=== PATIENT | female | born 1970 | race Caucasian/White ===

== ENCOUNTER 2017-05-10 06:32 | Day surgery (SDC) | payer BC ==
--- NOTE | 2017-05-03 19:34 | HP ---
PREOPERATIVE HISTORY AND PHYSICAL: DATE OF SURGERY/ADMISSION: 05/10/17 ATTENDING SURGEON: Patricia Norton MD * (DICTATED BY MECHELLE ZAZUETA) PROCEDURE: Right wrist arthroscopy, ulnar shortening osteotomy. CHIEF COMPLAINT: Right wrist pain. HISTORY OF PRESENT ILLNESS: This is a 46-year-old female who has a history of right wrist tendonitis; however, she sustained an acute injury to the wrist in the beginning of January when she fell on an outstretched right hand. Since then she has had increasing right wrist pain mostly on the ulnar aspect of the wrist. It hurts her when she moves it into ulnar deviation or when she supinates her forearm. She wears a brace, but sometimes it actually makes it feel a bit worse and she has to take the brace off. She denies any associated numbness or tingling. X-rays taken of the wrist show an ulnar positive variance of about 3 mm. The patient's wrist pain has persisted and at this point she has consented to proceed with surgical intervention in the form of a right wrist arthroscopy to take a look at the TFCC and an ulnar shortening osteotomy. PAST MEDICAL HISTORY: 1. Depression. 2. Hypothyroidism. 3. History of heart palpitations. PAST SURGICAL HISTORY: 1. Bariatric surgery in December 2012. 2. x3. 3. Right carpal tunnel release. 4. Cyst removal from back. CURRENT MEDICATIONS: 1. Calcium plus vitamin D daily. 2. Iron 65 mg daily. 3. Levoxyl 25 mcg daily. 4. Multivitamin daily. 5. Prozac 80 mg daily. 6. Vitamin C ER 500 mg daily. 7. Vitamin B12 daily. ALLERGIES: No known drug allergies. 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 She denies tobacco use and recreational drug use. She does drink alcohol on rare occasion. REVIEW OF SYSTEMS: General: Negative for fevers, chills, or night sweats. No known anesthesia problems. HEENT: Negative for headache, lightheadedness, or syncopal episodes. Integumentary: Negative for abrasions, lesions, or open wounds. Cardiothoracic: Negative for hypertension, chest pain, or edema. Pulmonary: Negative for shortness of breath with exertion, chronic cough, or COPD. GI: Negative for nausea, vomiting, diarrhea, constipation, or GERD. : Negative for nocturia, urinary frequency, urgency, history of UTIs, or kidney problems. Musculoskeletal: Positive for current complaint. Negative for chronic or intermittent back pain, or history of fractures. Neurologic: Positive for depression. Negative for paresthesias, numbness, history of seizures, stroke, or epilepsy. Endocrine: Positive for hypothyroidism. Negative for diabetes. Hematologic: Negative for easy bruising, anemia, excessive bleeding, or history of DVT. Infectious Disease: Negative for history of MRSA, hepatitis C, or HIV. PHYSICAL EXAMINATION GENERAL: Well-developed, well-nourished 46-year-old female in no acute distress. VITAL SIGNS: Height is 5 feet 7 inches, weight 234 pounds. Blood pressure 128/ 80, pulse rate 70. HEENT: Normocephalic, atraumatic. Pupils are equal, round, and reactive to light and accommodation. Extraocular movements are intact. NECK: Supple. No palpable lymph nodes. Throat is clear. PULMONARY: Lungs are clear to auscultation bilaterally. No wheezes, rales, or rhonchi. CARDIOVASCULAR: Regular rate and rhythm. S1 and S2. No murmurs, rubs, or gallops. No edema. ABDOMEN: Positive bowel sounds, soft, nontender. NEUROLOGIC: Alert and oriented x3. Cranial nerves II through XII are intact. Sensation is intact to light touch. MUSCULOSKELETAL: On exam of her right wrist, she has no visible swelling, but there is tenderness to palpation at the distal radial ulnar joint and the distal ulna is a bit more prominent. She has tenderness in area of the TFCC. She can make a full fist. She has good range of motion, but pain with supination and ulnar deviation. Skin is intact. Neurovascular function is intact. IMAGING STUDIES: X-rays AP, lateral, and oblique at the right wrist show an ulnar positive variance of about 3 mm, but no other bony abnormalities. IMPRESSION: Right wrist ulnar impaction syndrome, possible TFCC tear. PLAN: The patient is scheduled to undergo a right wrist arthroscopy and ulnar shortening osteotomy with Dr. Norton on 05/10/17. She will return to the office 10 days postop for followup and suture removal. A prescription for [place] was e - scribed to the patient's pharmacy for postoperative pain management. MECHELLE ZAZUETA [id number]/[facility] #: [id number] [facility] MEDICAL CENTERRaghav
[~2017-05-10 06:32] MED LIST: Buffered Lidocaine 0.9% SYRIN* 5 ML/SYR SYRINGE INTRADERM ONE; Dexamethasone IV* 4 MG/ML 1 ML (4 MG) IV SLOW PU ONE; Famotidine IV* 10 MG/ML 2 ML (20 mg) IV ONE; Sodium Citrate/Citric Acid* 15 ML UDC PO ONE
[2017-05-10] MEDS ORDERED: ceFAZolin 2 GM PREMIX (*) 2 GM/50 ML BAG IVPB ONE (06:40)
[2017-05-10] MEDS ORDERED: Famotidine IV* 10 MG/ML 2 ML (20 mg) ONE (06:40)
[2017-05-10] MEDS ORDERED: Dexamethasone IV* 4 MG/ML 1 ML (4 MG) ONE (06:40)
[2017-05-10] MEDS ORDERED: Sodium Citrate/Citric Acid* 15 ML UDC ONE (06:41)
[2017-05-10] MEDS ORDERED: Midazolam* 1 MG/ML 2 ML VIAL (2 MG) ONE (07:04)
[2017-05-10] MEDS ORDERED: fentaNYL* 50 MCG/ML 2 ML VIAL (100 MCG VIAL) ONE (07:04)
[2017-05-10] MEDS ORDERED: Bupivacaine 0.25% SDV* 30 ML ONE (07:33)
[2017-05-10] MEDS ORDERED: Ondansetron INJ* 2 MG/ML VIAL ONE (07:58)
[2017-05-10] MEDS ORDERED: Ketorolac INJ* 30 MG/ML 1 ML VIAL ONE (07:58)
[2017-05-10] MEDS ORDERED: HYDROmorphone INJ* 1 MG/ML CARPUJECT SYRINGE IV PRN (08:04)
[2017-05-10] MEDS ORDERED: Naloxone* 0.4 MG/ML 1 ML VIAL IV PRN (08:04)
[2017-05-10] MEDS ORDERED: Scopolamine 1.5 mg* PATCH TRANSDERM PRN (08:04)
[2017-05-10] MEDS ORDERED: Ibuprofen TAB* 600 MG PO PRN (08:04)
[2017-05-10] MEDS ORDERED: fentaNYL* 50 MCG/ML 2 ML VIAL (100 MCG VIAL) IV PRN (08:04)
[2017-05-10] MEDS ORDERED: oxyCODONE/Acetamin 5/325 MG* TAB PO PRN (08:04)
[2017-05-10] MEDS ORDERED: Ondansetron INJ* 2 MG/ML VIAL IV PRN (08:04)
[2017-05-10] MEDS ORDERED: Bupivacaine 0.5% SDV PF* 10-30ML VIAL ONE (08:09)
[2017-05-10] MEDS ORDERED: EPHEDrine (Pressors)* 50 MG/ML VIAL ONE (08:11)
[2017-05-10] MEDS ORDERED: Glycopyrrolate IV* 0.2 MG/ML 1 ML VIAL ONE (08:12)
[2017-05-10] MEDS ORDERED: HYDROcodone/ACETAMIN 5-325 MG* 1 TAB ONE (09:32)
[2017-05-10 10:23] VITALS: BP 138/80
--- NOTE | 2017-05-10 15:09 | RAD ---
INDICATION: Right wrist pain COMPARISONS: January 17, 2017 TECHNIQUE: Fluoroscopy was provided for a surgical procedure. Total fluoroscopy time is: 45 seconds FINDINGS: Spot images demonstrate internal fixation of the ulna. IMPRESSION: FLUOROSCOPY WAS PROVIDED FOR A SURGICAL PROCEDURE CPT II Codes: 6045F
--- NOTE | 2017-05-10 21:56 | OP ---
CC: Dr. Norton OPERATIVE NOTE: ADDENDUM: The surgical forceps fabricator, MECHELLE Carty, was essential for the completion of the case, serving to retract the soft tissues while the osteotomy cut was made. [id number]/[facility] #: [id number] MTDD
--- NOTE | 2017-05-10 22:21 | OP ---
ADDENDUM NOW INCLUDED ON THIS REPORT DATE OF OPERATION: 05/10/17 - [facility] DATE OF : 68 SURGEON: Patricia Norton MD PLATER SUPERVISOR: MECHELLE Carty ANESTHESIOLOGIST: Gi Hernandez MD ANESTHESIA: General. PRE-OP DIAGNOSES: Triangular fibrocartilage complex tear and ulnar impaction syndrome of the right wrist. POST-OP DIAGNOSIS: Ulnar impaction syndrome of the right wrist. OPERATIVE PROCEDURE: Right wrist arthroscopy, TFCC debridement and ulnar shortening osteotomy. ESTIMATED BLOOD LOSS: Zero. TOURNIQUET TIME: 45 minutes. INDICATIONS FOR PROCEDURE: Adelita is a 46-year-old female with ulnar-sided wrist pain for several months. MRI shows a TFCC tear and on x-ray she has ulnar positive variance of 3 mm. She presents for right wrist arthroscopy and ulnar shortening osteotomy. DESCRIPTION OF PROCEDURE: The patient was brought to the operating room, was given a general anesthetic, placed on supine position on the operating table with a tourniquet around her right upper arm. Skin of her right upper extremity was prepped and draped in the usual sterile fashion. The hand and forearm were exsanguinated and the tourniquet elevated to 250 mmHg. Fingers were placed in finger trap and 10 pounds traction was placed across the wrist. The radiocarpal joint was filled with 10 cc of 0.5% Marcaine plain. A stab incision was made just distal to Angel's tubercle and the arthroscope was placed in the radiocarpal joint. Diagnostic arthroscopy of the radiocarpal joint showed scaphoid lunate ligament to be intact. The articular surface of the scapholunate, triquetrum, radius were all in good condition. There was fair amount of synovitis and a loose fragment of cartilage in the ulnar aspect of the wrist but there was no rika tear of the TFCC. The loose body and the synovitis were debrided after creating a second portal in the 4-5 interval with a 2 mm Gator shaver. A third stab incision was then made just distal to the first and arthroscope was placed in the mid carpal joint. We were able to visualize scapholunate junction, lunotriquetral junction and these were well approximated. There was no sign of ligamentous tear at all and the cartilage surfaces were all in good condition. The arthroscopy instruments were removed and then the area of the ulnar shortening osteotomy incision was infiltrated with 10 cc of Marcaine 0.5% plain. A longitudinal incision was made along the subcutaneous border of the ulna and we dissected sharply through the subcutaneous tissue and the junction of the fascia of the flexor and extensor muscles. Subperiosteal dissection was then performed and the ulnar shortening plate from [employer] was secured with 1 distal screw in the slotted hole and 3 proximal screws. Next, the two pins were placed for the drill guide and then the 4 mm cutting guide was secured with the plate clamp and the first bone cut was made. The second cutting guide was then placed and a 4 mm wedge of bone was removed. The screw in the slotted hole was slightly loosened and after placing a K-wire through the distal fragment, the compression tool was used to reapproximate the osteotomy fragments. The slotted screw was then tightened again and the drill guide for the lag screw was placed and the appropriate drill was used to drill a lag hole measured for an 18 mm screw and a partially threaded lag screw was then placed across the osteotomy site, which gave excellent approximation of the osteotomy fragments. The K-wires were removed and the remaining 2 screws were placed in the plate. X-rays AP and lateral of the plate and at the wrist joint showed that the ulna now is 1 mm negative variance and the hardware was in good position. The osteotomy site was well approximated. The wound was irrigated, the fascia was closed with 2-0 Polysorb suture, subcutaneous tissue closed with 2-0 Vicryl suture and the skin with skin apurva. The arthroscopy portals were closed with 4-0 nylon suture. The wounds were dressed with Xeroform, 4x4, Webril, and a volar splint. The patient tolerated the procedure well, was brought to the recovery room in good condition. ADDENDUM: The surgical first assistant, MECHELLE Carty, was essential for the completion of the case, serving to retract the soft tissues while the osteotomy cut was made. [id number]/[facility] #: [id number] [place]- [id number]/[facility] #: [id number] RODERICK
[2017-05-13] MEDS ORDERED: Scopolamine PATCH Remove* 1 NOTE MISC PATCH OFF ONE (08:05)
== END 2017-05-10 10:28 | disposition home or self-care (01) ==
LOC: OREAST 06:32
PROVIDERS: ATTEND Orthopaedic Surgery
DX: M24.831 Other specific joint derangements of right wrist, not elsewhere classified (principal); E03.9 Hypothyroidism, unspecified; R00.2 Palpitations; F32.9 Major depressive disorder, single episode, unspecified
CPT/HCPCS: 76000; 88304; 88311; A9270-GY; C1713; C1776; J0690; J1100; J1885; J2250; J2405; J3010